=== PATIENT | male | born 1995 | race Hispanic/Latino ===

== ENCOUNTER 2022-05-14 21:00 | Emergency (ER) | payer OTHER ==
[2022-05-14] MEDS ORDERED: Acetaminophen 500 MG TAB ONE (22:11)
== END 2022-05-14 22:25 ==
LOC: NAV ERS 21:00
DX: S93.401A Sprain of unspecified ligament of right ankle, initial encounter (principal); W21.09XA Struck by other hit or thrown ball, initial encounter
CPT/HCPCS: 29515